=== PATIENT | male | born 1955 | race Caucasian/White ===

== ENCOUNTER 2020-02-08 22:17 | Emergency (ER) | payer OTHER, SELFPAY ==
[2020-02-08 22:25] VITALS: BP 153/84; PULSE 54; RESP 14; TEMP 36.6; O2SAT 100; BMI 21.7
--- NOTE | 2020-02-08 22:33 | ED.ABDPAIN ---
HPI - Abdominal Pain General Chief Complaint: Abdominal Pain Stated Complaint: sharp pain on left side of stomach Time Seen by Provider: 02/08/20 22:29 Source: patient Mode of arrival: Ambulatory Limitations: no limitations History of Present Illness HPI narrative: Otherwise healthy 64-year-old gentleman in his usual state of excellent health until approximately 6:00 p.m. this evening when he started noting left-sided abdominal pain radiating across is middle. Initially felt that he simply needed to have a bowel movement however with that, his pain was not alleviated. Decreased appetite but he was able to eat dinner. After September noticed the pain increased to an 8/10 he describes it as a dull stabbing pain in the left lower quadrant worse with movement. Related Data Home Medications Medication Instructions Recorded Confirmed albuterol sulfate 90 mcg/actuation 1 puff INHALATION Q6H PRN 08/23/18 08/23/18 aerosol inhaler Allergies Allergy/AdvReac Type Severity Reaction Status Date / Time No Known Drug Allergies Allergy Verified 02/08/20 22:24 Review of Systems Review of Systems Narrative: Pertinent positive and negative findings as per HPI Remainder of review of systems is otherwise unremarkable for Constitutional: Fevers, chills, weakness ENT: No sore throat, neck pain, ear pain CV: Chest pain, palpitations, dyspnea on exertion Respiratory: Cough, wheeze, dyspnea GI: Nausea, vomiting, diarrhea, change in bowel habits, black or bloody stools : Dysuria, hematuria, flank pain MS: Muscle weakness, numbness, joint swelling or warmth Skin: Rashes, nonhealing lesions Neuro: Syncope, dizziness, tingling Psych: Depression, anxiety, suicidal ideation Heme: Easy bruising or bleeding Patient History Medical History (Updated 02/09/20 @ 00:30 by Nancy Cruz MD) Healthy adult (Acute) Social History Smoking Status: Never smoker alcohol intake: current Smoking Status: Never smoker alcohol intake frequency: 0-2 drinks per day Substance Use Type: does not use Exam Narrative Exam Narrative: General: Healthy appearing, in no acute distress. Able to give a complete and coherent history. Well-nourished well-developed HEENT: Moist mucous membranes, normal sclera with reactive pupils, Neck: No JVD, supple Respiratory: Lungs are clear to auscultation, no wheezing no rales no rhonchi. Full and symmetrical air movement Cardiac: Regular rate and rhythm no murmurs no bruits Abdomen: Soft tender into the left lower quadrant with significant tenderness suprapubic and some mild left flank pain. No rebound no guarding no right-sided flank pain Skin: Warm and dry, no rashes Neurologic: Grossly neurologically intact with no obvious asymmetries or abnormalities Extremities: No trauma, well perfused Psych: Cooperative, appropriate insight and affect Initial Vital Signs Initial Vital Signs: Vital Signs Temperature 97.9 F 02/08/20 22:25 Pulse Rate 54 L 02/08/20 22:25 Respiratory Rate 14 02/08/20 22:25 Blood Pressure 153/84 H 02/08/20 22:25 Pulse Oximetry 100 02/08/20 22:25 Course Orders Ordered: ED Orders 02/08/20 22:44 Complete Blood Count AUTO DIFF Stat Comprehensive Metabolic Panel Stat Lipase Stat Magnesium Stat 02/08/20 22:53 CT abdomen pelvis w con Stat Discontinued Medications Hydromorphone HCl (Dilaudid) 0.5 mg IV NOW ONE Stop: 02/08/20 23:57 Last Admin: 02/09/20 00:05 Dose: 0.5 mg Documented by: KENNEDY Sodium Chloride (Normal Saline 0.9%) 1,000 mls @ 150 mls/hr IV CONT ROSIE Last Infusion: 02/09/20 00:45 Dose: 0 mls/hr Documented by: Admin: 02/08/20 23:50 Dose: 150 mls/hr Documented by: KENNEDY Ketorolac Tromethamine (Toradol) 15 mg IV NOW ONE Stop: 02/09/20 00:28 Last Admin: 02/09/20 00:30 Dose: 15 mg Documented by: KENNEDY Oxycodone/Acetaminophen (Endocet 5/325 Prepack) 1 bottle MISC SEEINSTR ONE Stop: 02/09/20 00:28 Last Admin: 02/09/20 00:30 Dose: 1 bottle Documented by: KENNEDY Vital Signs Vital signs: Vital Signs - 8 hr 02/08/20 22:25 02/09/20 00:38 Temperature 97.9 F Pulse Rate 54 L 54 L Respiratory Rate 14 15 Blood Pressure 153/84 H Blood Pressure [Left Arm] 154/72 H Pulse Oximetry 100 99 MDM - Abdominal Pain Medical Records Attestation: I reviewed the patient's medical records. Lab Data Attestation: I reviewed the patient's lab results. Result diagrams: 02/08/20 22:44 02/08/20 22:44 Labs: Lab Results 02/08/20 02/08/20 Range/Units 22:44 22:44 WBC 6.8 (4.5-11.0) X10^3/uL RBC 4.11 L (4.5-5.9) X10^6/uL Hgb 13.9 (13.5-17.5) g/dL Hct 39.7 L (41-53) % MCV 96.5 (80-100) fL MCH 33.7 (26-34) PG MCHC 35.0 (30-36) % RDW 12.7 (11.6-14.8) % Plt Count 222 (150-400) X10^3/uL Neut % (Auto) 69.8 (50-75) % Lymph % (Auto) 21.1 L (25-40) % [place] % (Auto) 6.9 (3-14) % Eos % (Auto) 1.6 L (2-4) % Baso % (Auto) 0.6 (0-2) % Neut # (Auto) 4700 (0280-3853) /uL Lymph # (Auto) 1400 (5888-5710) /uL [place] # (Auto) 500 (0-900) /uL Eos # (Auto) 100 (0-450) /uL Baso # (Auto) 0 (0-100) /uL Sodium 138 (137-145) mmol/L Potassium 3.9 (3.4-5.1) mmol/L Chloride 102 (98-107) mmol/L Carbon Dioxide 27 (22-32) mmol/L BUN 18 (9-20) mg/dL Creatinine 1.12 (0.66-1.25) mg/dL Estimated GFR > 60.0 (>60) mL/min BUN/Creatinine Ratio 16.1 (6-22) Glucose 102 (80-110) mg/dL Calcium 9.1 (8.4-10.2) mg/dL Magnesium 2.1 (1.6-2.3) mg/dL Total Bilirubin 0.7 (0.2-1.3) mg/dL AST 37 (17-59) IU/L ALT 20 (<50) IU/L Alkaline Phosphatase 44 (38-126) U/L Total Protein 7.4 (6.3-8.2) g/dL Albumin 4.4 (3.5-5.0) g/dL Globulin 3.0 (1.7-4.1) g/dL Albumin/Globulin Ratio 1.5 (1.0-2.8) Lipase 132 (23-300) U/L Imaging Data CT scan - abdomen/pelvis: Radiologist's Impression: Stone, distal left ureter. 4x3mm [id number] left hydronephrosis Marco Cedeno [facility] Narrative Medical decision making narrative: 64-year-old gentleman with acute onset left lower quadrant pain. CT scan reveals a kidney stone in the distal left ureter. Labs do not suggest acute infection and CT scan does not reveal other significant pathology. Patient is given a L of fluid, half a mg of Dilaudid, 15 mg of Toradol and pain is significantly improved. Questions are answered and patient is safe for home discharge Discharge Plan Departure Patient Disposition: Home Clinical Impression: Kidney stone on left side Discharge Date/Time: 02/09/20 00:45 Instructions: DI for Kidney Stones Activity Restrictions/Additional Instructions: Thank you for coming in today You have a 7 x 4 mm kidney stone that has traveled from your kidney all the way down to your bladder and is almost ready to come out. Once it passes into your bladder from the bladder out should be painless. Using 400 mg of ibuprofen (2 nhal-jxr-piugyim pills) and 1 Tylenol every 6 hours can be very helpful in controlling pain. For severe pain, using 400 mg of ibuprofen in 1 Percocet can be helpful. Any time you take narcotic, you will have constipation. On the CT scan you do have quite a bit of stool on the right side of your colon. I would strongly recommend adding a stool softener any time you are using a narcotic. If you notice that you are getting worse, developed any fevers or find that you are unable to urinate please feel free to return to the emergency room for further evaluation. I hope you feel better Prescriptions: No Action albuterol sulfate 90 mcg/actuation HFA aerosol inhaler 1 puff INHALATION Q6H PRNRF: 0 Referrals: Rox Pedersen [Primary Care Provider] -
--- NOTE | 2020-02-08 22:53 | DI.CT.S_ITS ---
PROCEDURE: CT ABDOMEN PELVIS W CON INDICATIONS: acute abdominal pain, suprapubic left lower quadrant TECHNIQUE: After the administration of intravenous contrast, 5 mm thick sections acquired from the diaphragm to the symphysis. 5 mm coronal and sagittal reformats were acquired. For radiation dose reduction, the following was used: automated exposure control, adjustment of mA and/or kV according to patient size. COMPARISON: None. FINDINGS: Image quality: Excellent. ABDOMEN: Lung bases: Lung bases are clear. Heart size is normal. Solid organs: Liver is normal in size and enhancement. Gallbladder appears normal. Biliary system is non dilated. Pancreas enhances normally. Spleen is normal in size and enhancement. No adrenal nodules. Kidneys demonstrate normal size but asymmetric enhancement, slightly reduced on the left, without right-sided hydronephrosis. There is mild to moderate hydronephrosis and hydroureter on the left extending to the far distal orifice of the left ureter within the bladder lumen where a 3 x 4 mm calculus is present. By position this is not freely located within the bladder lumen. Peritoneum and bowel: Bowel loops demonstrate normal wall thickness and caliber. No free fluid or air. Nodes and vessels: No retroperitoneal or mesenteric adenopathy by size criteria. Aorta and inferior vena cava are normal in size. Miscellaneous: No ventral hernias. PELVIS: Genitourinary: Bladder wall thickness is normal. Miscellaneous: No inguinal hernias or adenopathy. Bones: No suspicious bony lesions. No vertebral body compression fractures. IMPRESSION: 3 x 4 mm far distal left ureteral stone, virtually at the ureteral orifice, with associated mild left hydronephrosis and hydroureter and mild reduction in enhancement of the left renal cortex. A stone of this small size generally will pass into the bladder lumen. No additional urinary tract stones is present elsewhere. Dictated by: Eric Hernandez M.D. on 02/09/2020 at 9:29 Approved by: Eric Hernandez M.D. on 02/09/2020 at 9:32
[2020-02-08 23:00] LABS: Add Manual Diff / Slide Review NO; Basophils Absolute Auto 0 /uL (0-100); Basophils Percent Auto 0.6 % (0-2); Eosinophils Absolute Auto 100 /uL (0-450); Eosinophils Percent Auto 1.6 % (2-4); Hematocrit 39.7 % (41-53); Hemoglobin 13.9 g/dL (13.5-17.5); Lymphocytes Absolute Auto 1400 /uL (1100-4500); Lymphocytes Percent Auto 21.1 % (25-40); Mean Corpuscular Hemoglobin 33.7 PG (26-34); Mean Corpuscular Volume 96.5 fL (80-100); Monocytes Absolute Auto 500 /uL (0-900); Monocytes Percent Auto 6.9 % (3-14); Neutrophils Absolute Auto 4700 /uL (1500-7000); Neutrophils Percent Auto 69.8 % (50-75); Platelet Count 222 X10^3/uL (150-400); Red Blood Cell Count 4.11 X10^6/uL (4.5-5.9); Red Cell Distribution Width 12.7 % (11.6-14.8); White Blood Cell Count 6.8 X10^3/uL (4.5-11.0)
[2020-02-08 23:06] LABS: Alanine Aminotransferase 20 IU/L (<50); Albumin 4.4 g/dL (3.5-5.0); Albumin Globulin Ratio 1.5 (1.0-2.8); Alkaline Phosphatase 44 U/L (38-126); Aspartate Aminotransferase 37 IU/L (17-59); BUN Creatinine Ratio 16.1 (6-22); Bilirubin Total 0.7 mg/dL (0.2-1.3); Blood Urea Nitrogen 18 mg/dL (9-20); Calcium 9.1 mg/dL (8.4-10.2); Carbon Dioxide 27 mmol/L (22-32); Chloride 102 mmol/L (98-107); Estimated Glomerular Filt Rate > 60.0 mL/min (>60); Glucose 102 mg/dL (80-110); HEMOLYSIS < 15 (0-50); Lipase 132 U/L (23-300); Magnesium 2.1 mg/dL (1.6-2.3); Potassium 3.9 mmol/L (3.4-5.1); Sodium 138 mmol/L (137-145); Total Protein 7.4 g/dL (6.3-8.2)
[2020-02-08] MEDS: SODIUM CHLORIDE 0.9% 1,000 ML 150 ML IV (23:50)
[2020-02-09] MEDS: HYDROMORPHONE 0.5 MG INJ IV (00:05)
[2020-02-09] MEDS: OXYCODONE/APAP 5/325 PREPACK 1 BOTTLE MISC (00:30)
[2020-02-09] MEDS: KETOROLAC 60 MG/2 ML VIAL 15 MG IV (00:30)
[2020-02-09 00:38] VITALS: BP 154/72; PULSE 54; RESP 15; O2SAT 99
== END 2020-02-09 00:45 | disposition home or self-care (01) ==
PROVIDERS: Emergency Provider Emergency Medicine; PCP Internal Medicine
DX: N20.2 Calculus of kidney with calculus of ureter (principal)
CPT/HCPCS: 36415; 51798; 74177; 80053; 83690; 83735; 85025; 96361; 96374; 96375; 99284; J1170; J1885; Q9967